=== PATIENT | female | born 1975 | race Caucasian/White ===

== ENCOUNTER → 2023-08-29 | Outpatient (CLI) | payer OTHER ==
[~2023-08-29] MED LIST: ALLO100T PO; ALPR0.5T7 PO; AMLO-250 PO; ASCO500C17 PO; BARIUM for suspension 96% w/w (Vanilla Silq Medium Density) PO ONE; BARIUM for suspension 98% w/w (Vanilla Silq High Density) PO ONE; CALC-196 PO; CALC-817 PO; CARV6.25 PO; CEPH500T PO; CETI10TA49 PO; CHOL100045 PO; DCS100C PO; ERGO1250 PO; ERGO50006 PO; ESTR0.5T3 PO; ESTR2TAB3 PO; FURO-125 PO; FURO40TA4 PO; GABA-488 PO; GABA300C PO; GBPN300C PO; HYDR1TAB75 PO; HYDR25TA4 PO; IBP800T PO; IBUP-2185 PO; LEVO150T6 PO; LEVO175T5 PO; LISI20TA26 PO; LISI5TAB PO; LVT.025T PO; MELO-170 PO; MULT-608 PO; NIAC500T24 PO; OMEG1CAP53 PO; OMEP20TA2 PO; ONDA4TAB11 PO; PANT40TA2 PO; POTA-179 PO; POTA10CA84 PO; PRD10T PO; PRED5TAB PO; SAXA2.5T PO; SAXA5TAB PO; SERT-414 PO; SRTR100T PO; STOOL SOFTENER; SUCR1TAB36 PO; TOPI25CA6 PO; VITA1TAB17 PO; [UNRECOGNIZED DRUG - OTHER]
--- NOTE | 2023-08-29 08:55 | Diagnostic Imaging Report ---
Indication: History of non-Hodgkin's lymphoma. The patient states that food has been getting stuck in her throat over the past month. Patient ingested effervescent crystals as well as thin and thick barium and imaging of the esophagus is performed multiple obliquities. Fluoroscopic time was 40 seconds. A reference air Kerma is 23.9 mg. 35 images were obtained. Preliminary radiograph of the chest is unremarkable. The esophagus has a smooth contour. No mass or stricture is identified. No gastroesophageal reflux or hiatal hernia was demonstrated. IMPRESSION: Unremarkable barium esophagram. Dictated by: Dictated on workstation # [id number]
--- NOTE | 2023-08-29 09:30 | Diagnostic Imaging Report ---
PROCEDURE: MR imaging of the brain without contrast. TECHNIQUE: Multiplanar, multisequence MR imaging of the brain was performed without contrast. INDICATION: Migraines. Left eye blurry vision. COMPARISON: 01/21/2018. 03/28/2015. FINDINGS: No acute ischemia, mass, or hemorrhage. The ventricles, cortical sulci, and basilar cisterns are symmetric and unremarkable. The sellar and suprasellar regions have a normal appearance. The brainstem and posterior fossa are unremarkable. Small fluid level seen in the right maxillary sinus. The mastoid air cells demonstrate normal signal characteristics. The globes and orbits are symmetric and unremarkable. The scalp and calvarium have a normal appearance. IMPRESSION: 1. No acute ischemia, mass, or hemorrhage. No focal signal abnormalities. 2. Findings suggestive of acute sinusitis in the right maxillary sinus. Dictated by: Dictated on workstation # [id number]
== END ==
LOC: RAD 07:22
PROVIDERS: ATTEND Nurse Practitioner Family
DX: G43.109 Migraine with aura, not intractable, without status migrainosus (principal)
CPT/HCPCS: 70551; 74220

== ENCOUNTER → 2023-08-30 | Outpatient (CLI) | payer OTHER ==
[~2023-08-30] MED LIST changes: -BARIUM for suspension 96% w/w (Vanilla Silq Medium Density) PO ONE; -BARIUM for suspension 98% w/w (Vanilla Silq High Density) PO ONE
[2023-08-30 07:18] LABS: POTASSIUM 3.5 MMOL/L (3.6-5.0)
[2023-08-30 07:19] LABS: CALCIUM 9.4 MG/DL (8.5-10.1)
[2023-08-30 07:24] LABS: CREATININE SERUM 0.83 MG/DL (0.60-1.30)
== END ==
LOC: LAB 06:51
PROVIDERS: ATTEND Nurse Practitioner Family
DX: E87.6 Hypokalemia (principal)
CPT/HCPCS: 36415; 80048

== ENCOUNTER → 2023-10-10 | Outpatient (CLI) | payer OTHER ==
[2023-10-10 08:11] LABS: ALBUMIN 4.1 GM/DL (3.2-4.5); POTASSIUM 3.7 MMOL/L (3.6-5.0)
[2023-10-10 08:12] LABS: CALCIUM 8.7 MG/DL (8.5-10.1)
[2023-10-10 08:15] LABS: BILIRUBIN,TOTAL 0.4 MG/DL (0.1-1.0)
[2023-10-10 08:17] LABS: CREATININE SERUM 0.75 MG/DL (0.60-1.30)
== END ==
LOC: LAB 07:52
PROVIDERS: ATTEND Nurse Practitioner Family
DX: E87.6 Hypokalemia (principal)
CPT/HCPCS: 36415; 80053